=== PATIENT | male | born 1965 | race Caucasian/White ===

== ENCOUNTER → 2018-04-05 | Outpatient (CLI) | payer OTHER ==
[~2018-04-05] MED LIST: ALLO300T PO; ASCO1500 PO; DICL75TA3 PO; ENAL10TA PO; MELO15TA24 PO; OMEP20TA62 PO
[2018-04-05 09:22] LABS: CULTURE INDICATED? NO; MICROSCOPIC NOT IND
[2018-04-05 09:33] LABS: ALANINE AMINOTRANSFERASE 64 U/L (12-78); ALBUMIN 3.9 g/dL (3.4-5.0); ANION GAP 6 mmol/L (5-15); CALCIUM 9.3 mg/dL (8.5-10.1); CHLORIDE 102 mmol/L (98-107); CREATININE 0.93 mg/dL (0.7-1.3)
[2018-04-05 09:36] LABS: ALKALINE PHOSPHATASE 137 U/L (45-117); BILIRUBIN,TOTAL 0.6 mg/dL (0.2-1.0); TOTAL PROTEIN 7.8 g/dL (6.4-8.2)
== END | disposition home or self-care (01) ==
LOC: STAR 08:19
PROVIDERS: ATTEND Orthopaedic Surgery
DX: M25.562 Pain in left knee (principal); M17.12 Unilateral primary osteoarthritis, left knee; Z96.651 Presence of right artificial knee joint
CPT/HCPCS: 36415; 80053; 81003; 87081

== ENCOUNTER 2018-04-14 06:38 | Observation (INO) | payer OTHER ==
[2018-04-05 09:16] VITALS: BP 145/94
[~2018-04-14] VITALS: Ht 182.9 cm; Wt 133.6 kg
[~2018-04-14 06:38] MED LIST changes: +TRANEXAMIC ACID 100 MG/ML, 10ML ONE
[2018-04-14] MEDS ORDERED: LACTATED RINGERS 1,000 ML IV SCH ×2 (06:46→06:57)
[2018-04-14] MEDS ORDERED: GABAPENTIN 300 MG CAPSULE PO ONE (07:00)
[2018-04-14] MEDS ORDERED: ACETAMINOPHEN 500 MG TABLET PO ONE (07:00)
[2018-04-14] MEDS ORDERED: LIDOCAINE-MPF 1%, 2ML ONE (07:10)
[2018-04-14] MEDS ORDERED: MIDAZOLAM 1 MG/ML, 2ML ONE (07:54)
[2018-04-14] MEDS ORDERED: FENTANYL PF 250 MCG/5ML ONE ×2 (07:54→09:54)
[2018-04-14] MEDS ORDERED: ROPIvacaine/PF 0.5%, 30 ML ONE (07:57)
[2018-04-14] MEDS ORDERED: PROPOFOL 10 MG/ML, 20ML ONE (07:58)
[2018-04-14] MEDS ORDERED: GLYCOPYRROLATE 0.2MG/1ML, 5ML ONE (07:58)
[2018-04-14] MEDS ORDERED: NEOSTIGMINE 1 MG/ML, 10ML ONE (07:58)
[2018-04-14] MEDS ORDERED: ROCURONIUM 10MG/ML,5ML ONE (07:58)
[2018-04-14] MEDS ORDERED: CEFAZOLIN 1,000 MG ONE ×2 (07:58→09:26)
[2018-04-14] MEDS ORDERED: DIPHENHYDRAMINE 50 MG CAPSULE PO PRN (09:00)
[2018-04-14] MEDS: ENALAPRIL 10 MG TABLET PO SCH (09:00)
[2018-04-14] MEDS: CEFAZOLIN PMX 2GM/50ML 50 ML IVPB SCH ×2 (09:00→17:00)
[2018-04-14] MEDS: DICLOFENAC SODIUM 75 MG TABLET.DR PO SCH (09:00)
[2018-04-14] MEDS ORDERED: ACETAMINOPHEN 650 MG/20.3 ML UDC PO PRN (09:00)
[2018-04-14] MEDS ORDERED: OXYcodone/APAP 5/325MG TABLET PO PRN (09:00)
[2018-04-14] MEDS ORDERED: TEMPLATE NON-FORMULARY MED. (Omeprazole Magnesium** (Prilosec Otc**) 20 MG) PO SCH (09:00)
[2018-04-14] MEDS: ALLOPURINOL 300 MG TABLET PO SCH (09:00)
[2018-04-14] MEDS: DOCUSATE 100 MG CAPSULE PO SCH ×2 (09:00→22:00)
[2018-04-14] MEDS ORDERED: morphine SULFATE 10 MG/ML, 1ML IV PRN (09:00)
[2018-04-14] MEDS ORDERED: HYDROcodone/APAP 10/325 MG TABLET PO PRN (09:00)
[2018-04-14] MEDS ORDERED: BUPIVACAINE/PF-EPI 0.5% 1:200K ONE (09:10)
[2018-04-14] MEDS ORDERED: MORPHINE SULFATE 4 MG/ML, 1ML IVPush PRN (09:30)
[2018-04-14] MEDS ORDERED: PROMETHAZINE 12.5 MG SUPP PR PRN (09:30)
[2018-04-14] MEDS ORDERED: ONDANSETRON ODT 8 MG PO PRN (09:30)
[2018-04-14] MEDS ORDERED: PROMETHAZINE 25 MG/ML, 1ML IV PRN (09:30)
[2018-04-14] MEDS ORDERED: MEPERIDINE/PF 25MG/0.5ML IVPush PRN (09:30)
[2018-04-14] MEDS ORDERED: OXYcodone 5 MG/5 ML ORAL.SOL UDC PO PRN (09:30)
[2018-04-14] MEDS ORDERED: PROMETHAZINE 25 MG SUPP PR PRN (09:30)
[2018-04-14] MEDS ORDERED: hydrALAzine 20 MG/ML, 1ML IV PRN (09:30)
[2018-04-14] MEDS ORDERED: PROMETHAZINE 25 MG/ML, 1ML IM PRN ×2 (09:30)
[2018-04-14] MEDS ORDERED: LABETALOL 5MG/ML, 20ML IV PRN (09:30)
[2018-04-14] MEDS ORDERED: ONDANSETRON 2MG/ML, 2ML IV PRN (09:30)
[2018-04-14] MEDS ORDERED: TRANEXAMIC ACID 100 MG/ML, 10ML ONE (09:36)
[2018-04-14] MEDS ORDERED: FENTANYL PF 100 MCG/2ML ONE ×2 (10:38→11:29)
[2018-04-14] MEDS ORDERED: HYDROcodone/APAP 10/325 MG TABLET PO SCH ×2 (11:00→13:30)
[2018-04-14] MEDS ORDERED: OXYcodone 5 MG/5 ML ORAL.SOL UDC ONE (11:30)
[2018-04-14] MEDS: FENTANYL PF 100 MCG/2ML IV PRN ×2 (11:33→11:48)
[2018-04-14] MEDS ORDERED: HYDROmorphone 1 MG/ML, 1ML ONE ×2 (11:36→12:08)
[2018-04-14] MEDS: HYDROmorphone 2 MG/ML, 1ML IVPush PRN ×3 (11:40→12:10)
[2018-04-14] MEDS ORDERED: OMEPRAZOLE 20 MG CAPSULE.DR PO SCH (13:15)
[2018-04-14 14:00] VITALS: BP 146/92
[2018-04-14] MEDS: ONDANSETRON 4 MG TABLET PO PRN ×2 (14:38→21:05)
[2018-04-14] MEDS: HYDROcodone/APAP 10/325 MG TABLET PO SCH ×3 (14:39→22:00)
[2018-04-14] MEDS: D5%-0.45% NACL 1,000 ML IV SCH (15:00)
[2018-04-14 19:49] VITALS: BP 135/87
[2018-04-15 00:05] VITALS: BP 120/72
[2018-04-15] MEDS: HYDROcodone/APAP 10/325 MG TABLET PO SCH ×3 (02:03→09:27)
[2018-04-15] MEDS: D5%-0.45% NACL 1,000 ML IV SCH ×2 (03:32→11:00)
[2018-04-15 04:05] VITALS: BP 135/88
[2018-04-15 08:25] VITALS: BP 150/82
[2018-04-15] MEDS ORDERED: KETOROLAC 30 MG/1 ML IV SCH (09:00)
[2018-04-15] MEDS ORDERED: ENALAPRIL 5MG TABLET ONE (09:19)
[2018-04-15] MEDS: DICLOFENAC SODIUM 75 MG TABLET.DR PO SCH (09:27)
[2018-04-15] MEDS: DOCUSATE 100 MG CAPSULE PO SCH (09:27)
[2018-04-15] MEDS: ALLOPURINOL 300 MG TABLET PO SCH (09:27)
[2018-04-15] MEDS: ENALAPRIL 10 MG TABLET PO SCH (09:28)
[2018-04-15 11:52] VITALS: BP 131/79
[2018-04-15] MEDS ORDERED: ASPIRIN 325 MG TABLET EC PO SCH (18:00)
== END 2018-04-15 12:40 | disposition home or self-care (01) ==
LOC: OUT 06:38 → ORIP 08:50 → 4NOR 12:45 → DCLOUNGE 04-15 12:30
PROVIDERS: ADMIT Orthopaedic Surgery; ATTEND Orthopaedic Surgery
DX: M17.12 Unilateral primary osteoarthritis, left knee (principal)
CPT/HCPCS: 27447; 73560; 96374; 97162; C1713; C1776; G0378; J0690; J1170; J1885; J2250; J2704; J2710; J2795; J3010; J3490; J7120; Q0162